=== PATIENT | male | born 1935 | race Caucasian/White ===

== ENCOUNTER 2016-11-17 12:22 | Inpatient (IN) | payer MEDICARE ==
[~2016-11-17] VITALS: Ht 170.2 cm; Wt 74.2 kg
[2016-11-17] VITALS (8 sets, daily range): BP systolic 118–203; BP diastolic 42–104; PULSE 93–130; RESP 17–28; O2SAT 91–95
[~2016-11-17 12:22] MED LIST: ACET1TAB12 PO; AMIO400T4 PO; ASPI-973 PO; ATOR40TA69 PO; FLAX100010 PO; FURO40TA4 PO; HYDR25TA4 PO; LISI-567 PO; MULT-1018 PO; WARF5TAB7 PO
--- NOTE | 2016-11-17 12:28 | ED.REPORT ---
HPI-Dyspnea / Wheezing Date of Service Nov 17, 2016 ED Provider: Dr. Mark Anthony Rodas MD An 81 year old male with a history of atrial fibrillation on Warfarin, MA, CAD, hypertension and PVD presents to the ED with sudden onset dsypnea that began at 1100 this morning. The patient reports that he was completely asymptomatic prior to sudden onset of chills, fever, SOB, productive cough with white sputum, nasal congestion, heart palpitations, and diaphoresis this morning. He was completely asymptomatic yesterday. The patient has been taking his medications directed. No known recent sick contacts. He denies any chest pain. This morning, INR - 2.1 Nursing Notes Stated Complaint: SOB Nursing Notes Reviewed: Yes Allergies: Coded Allergies: No Known Allergies (Unverified Allergy, Unknown, 11/17/16) Scheduled Amiodarone (Amiodarone) 400 Mg Tablet 400 MG PO Evening Aspirin (Aspirin) 81 Mg Tablet 81 MG PO DAILY Atorvastatin Calcium (Atorvastatin Calcium) 40 Mg Tablet 40 MG PO HS Flaxseed (Flaxseed Oil) 1,000 Mg Capsule 1,000 MG PO DAILY Furosemide (Furosemide) 40 Mg Tablet 40 MG PO DAILY Hydrochlorothiazide (Hydrochlorothiazide) 25 Mg Tablet 25 MG PO Evening Lisinopril (Lisinopril) 20 Mg Tablet 20 MG PO AM Multivitamin (Multi Vitamin Daily) 1 Each Tablet 1 EACH PO DAILY Warfarin Sodium (Warfarin Sodium) 5 Mg Tablet 5 MG PO Mon, Thr Warfarin Sodium (Warfarin Sodium) 5 Mg Tablet 2.5 MG PO ,,Sun, Sa, Oakes General Time Seen by MD: 12:27 Chief Complaint Shortness of breath Hx Obtained From: Patient Arrived By: Walk-in Sudden in Onset?: Yes Onset Occurred: Just prior to arrival (1100) Symptom Duration: Since onset Location: : None Associated with: Reports: Cough, Diaphoresis, Nasal congestion Pertinent Negative: Pt denies other symptoms Recent Healthcare: No recent doctor visit, No recent hospitalization Risk Factors CAD Risk Stratification Known CAD Past Medical History Past Medical History MA Alcoholic, 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 Mild to moderate global hypokinesis of the left ventricle. Mitral regurgitation, severe by angiography. Atrial fibrillation, anticoagulated on coumadin Gallbladder: reduced ejection fraction on HIDA scan Hypertension History of remote gastrointestinal bleed, more than 10 years ago. Possible benign prostatic hypertrophy. Anemia. Peripheral vascular disease, femoral artery stenosis by catheterization. Past Surgical History shoulder repair 4 way bypass mitral valve replacement Smoking History Never Smoker Social History Lives with his Works part-time as a deisel diesel mechanic apprentice Alcohol Use: In recovery Drug Use: Denies drug use Other Social History: , Local resident Ambulatory Status Independent Review of Systems Constitutional: Reports: Chills, Fever Ears / Nose / Throat: Reports: Nasal congestion Respiratory: Reports: Prod cough, clear, Shortness of breath Cardiovascular: Reports: Palpitations, Denies: Chest pain Skin: Reports Diaphoresis Complete sys rev & neg: except as marked. Physical Exam Initial Vital Signs Vital Signs (First) Date Time Temp Pulse Resp B/P Pulse Ox O2 Delivery O2 Flow Rate FiO2 11/17/16 12:34 37.0 130 17 203/42 95 Room Air Initial VS: Reviewed Head / Eyes: Atraumatic, Normocephalic, PERRL Extremities: Vascular intact, Neuro intact, No swelling, No tenderness Skin: Warm, Dry, No cyanosis Neurologic: Alert, Oriented, Nonfocal Psychiatric: Mood/affect normal, Behavior normal, Normal thought content General/Constitutional: Awake, Alert, No acute distress GENERAL: Febrile Neck: Atraumatic, Supple, Full range of motion, Non-tender Respiratory / Chest: Atraumatic Diminished Breath Sounds: Positive: Decreased bilateral RESPIRATORY: Tachypneic Cardiovascular: Regular rhythm, Heart sounds NL, Peripheral circulation NL, Pulses = bilaterally Heart Rate / Rhythm: Positive: Tachycardia Abdomen: Atraumatic, Soft Interpretation & Diagnostics Lab Results Interpretation Result Diagram: 11/17/16 1240 11/17/16 1240 Test 11/17/16 12:40 White Blood Count 12.1th/mm3 (3.8-10.1) Red Blood Count 4.58mil/mm3 (4.40-5.80) Hemoglobin 12.7g/dL (13.8-17.2) Hematocrit 39.6% (41.0-50.0) Mean Corpuscular Volume 86.5fL (81-100) Mean Corpuscular Hemoglobin 27.7pg (27.0-35.0) Mean Corpuscular Hemoglobin Concent 32.1% (32.0-37.0) Red Cell Distribution Width 18.0% (12.3-15.4) Platelet Count 214bil/L (150-400) Neutrophils (%) (Auto) 79.9% (40-74) Lymphocytes (%) (Auto) 12.4% (14-46) Monocytes (%) (Auto) 6.8% (4-12) Eosinophils (%) (Auto) 0.7% (0-5) Basophils (%) (Auto) 0% (0-3) Prothrombin Time 18.4sec (8.1-12.5) Prothromb Time International Ratio 1.70ratio Sodium Level 141mEq/L (134-144) Potassium Level 3.7mEq/L (3.5-5.2) Chloride Level 101mEq/L (97-108) Carbon Dioxide Level 22mmol/L (18-29) Blood Urea Nitrogen 21mg/dL (8-27) Creatinine 0.90mg/dL (0.76-1.27) Estimat Glomerular Filtration Rate 86mL/min (>59) Glucose Level 100mg/dL (60-99) Lactic Acid Level 2.6mmol/L (0.4-2.0) Calcium Level 9.7mg/dL (8.5-10.1) Magnesium Level 1.7mg/dL (1.6-2.6) Total Bilirubin 1.0mg/dL (0.0-1.2) Aspartate Amino Transf (AST/SGOT) 48U/L (0-50) Alanine Aminotransferase (ALT/SGPT) 34U/L (0-44) Alkaline Phosphatase 91U/L (25-160) Troponin T 0.010ug/L (0.0-0.011) Pro-B-Type Natriuretic Peptide 2548pg/mL (0-486) Total Protein 7.9g/dL (6.4-8.4) Albumin 4.4g/dL (3.4-5.0) Procalcitonin 0.03ng/mL (0.00-0.08) Hold [place] Top Tube Received (Received) ECG Interpretation ECG Interpretation: Sinus tachycardia Rate 135 bpm Ventricular premature complex Consider left ventricular hypertrophy Compared to previous (05/25/14) - Now tachycardic changed from sinus Time: 12:42 Interpreted by: ED physician X-Ray Chest Interpretation Chest Xray Interpretation: IMPRESSION: Prior cardiac surgery, probable prior CABG. No sign of acute CHF. Note is made of a chronic interstitial prominence within the lung parenchyma not significantly changed considering slight differences in inspiratory volume. A mild or early pneumonia the left lung base would be very difficult to accurately detect superimposed on this pattern. Dictated by: Chace Ventura M.D. on 11/17/2016 at 12:54 Interpretation / Wet Read by: Interpret - Radiologist Re-Eval/Medical Decision Med Decision/Clinical Course Likely a pneumonia or other upper respiratory infection causing a sepsis pattern as well as A. fib with rapid ventricular response. Multiple doses of IV metoprolol and a dose of IV Cardizem were given. Patient is put on Rocephin and azithromycin. Patient will be admitted Re-Evaluation/Progress #1: Time of Eval: 13:07 Re-Evaluation/Progress Note: Patient is rechecked. Coughing is still present. Hypertensive upon re-eval . All questions are addressed at this time. Re-Evaluation/Progress #2: Time of Eval: 13:57 Patient Status: Condition improved Re-Evaluation/Progress Note: All questions are addressed. The patient is agreeable to his disposition at this time. Consultation : Referral / Consult Name: Kristen Griffiths DO Consulted With: Hospitalist Call Returned at: 14:32 [employer] Car[employer] Operator: Will see patient, Agrees with eval, Agrees with plan, Accepts admit Note: Discussed patient condition. Accepts admission. Counseled Regarding: Diagnosis, Lab results, Need for admission Discharge & Departure Impression: Primary Impression: Sepsis Sepsis type: sepsis due to unspecified organism Qualified Code: A41.9 - Sepsis, unspecified organism Additional Impression: Upper respiratory infection URI type: unspecified URI Qualified Code: J06.9 - Acute upper respiratory infection, unspecified Disposition: ADMITTED TO HOSPITAL Discharge Condition All VS Reviewed: Yes Condition: Improved Referrals: Hernán Chávez MD (PCP) Crit Care Except Billable Proc Time Spent: 30-74 minutes (35 min) Services Performed: Patient management by me, Time spent at bedside, Reviewing test results, Reviewing imaging, Discussing patient care, Documentation in record, Time with fam/surrogate Critical Care Notes: See MDM Scribe Attestation Portions of this note were transcribed by Mariana Baca. I, Dr. Airam Rodas, personally performed the history, physical exam and medical decision-making; I reviewed and confirmed the accuracy of the information in the transcribed note. Signed by: Mariana Baca, 11/17/16. copies to: Hernán Chávez MD, Timothy S DO Nov 17, 2016 12:28 MARIANA BACA Nov 17, 2016 12:37
[2016-11-17] MEDS ORDERED: 0.9% Sodium Chloride 1,000 ML IV ONE (12:35)
[2016-11-17] MEDS ORDERED: Nitroglycerin 2% 1 Gm Ointment TOPICAL SCH (12:50)
[2016-11-17] MEDS: MeTOProlol 1 mg/mL 5 mL Inj IVPUSH SCH ×3 (12:54→13:05)
--- NOTE | 2016-11-17 12:57 | DRSVH ---
PROCEDURE: X-RAY CHEST ONE VIEW, PORTABLE ([id number]) INDICATIONS: chest pain TECHNIQUE: One view of the chest was acquired. COMPARISON: [facility], , CHEST 1VW (PORTABLE), 01/14/2014, 10:47. [facility], CR, CHEST 1VW (PORTABLE), 03/06/2014, 9:49. FINDINGS: Surgical changes and devices: Stable time, left shoulder arthroplasty, heart valve replacement, mike otomy wires. Lungs and pleura: No pleural effusions or pneumothorax. Lungs are abnormal with a chronic interstit ial prominence, perhaps reflecting prior smoking history, and no definite focal pneumonia is found.. Mediastinum: Mediastinal contours appear normal. Heart size is normal. Bones and chest wall: No suspicious bony lesions. Overlying soft tissues appear unremarkable. IMPRESSION: Prior cardiac surgery, probable prior CABG. No sign of acute CHF. Note is made of a chr onic interstitial prominence within the lung parenchyma not significantly changed considering slight differences in inspiratory volume. A mild or early pneumonia the left lung base would be very diffic ult to accurately detect superimposed on this pattern. Dictated by: Cahce Ventura M.D. on 11/17/2016 at 12:54 Approved by: Chace Ventura M.D. on 11/17/2016 at 12:56
[2016-11-17 13:04] LABS: BASOPHILS % (AUTO) 0 % (0-3); EOSINOPHILS % (AUTO) 0.7 % (0-5); MONOCYTES % (AUTO) 6.8 % (4-12); Mean Corpuscular Hemoglobin 27.7 pg (27.0-35.0); Mean Corpuscular Volume 86.5 fL (81-100); NEUTROPHILS % (AUTO) 79.9 % (40-74); Platelet Count 214 bil/L (150-400)
[2016-11-17 13:10] LABS: INR 1.7 ratio
[2016-11-17 13:18] LABS: TROPONIN T 0.01 ug/L (0.0-0.011)
[2016-11-17 13:29] LABS: Magnesium 1.7 mg/dL (1.6-2.6)
[2016-11-17] MEDS ORDERED: Diltiazem 5 mg/mL 5 mL Inj IVPUSH ONE (13:30)
[2016-11-17] MEDS ORDERED: cefTRIAXone Inj 2,000 MG in Dextrose 5% Minibag Plus 50 ML IV ONE (13:55)
[2016-11-17] MEDS ORDERED: Azithromycin Inj 500 MG in Dextrose 5% w/Vial Mate 250 ML IV ONE (13:55)
[2016-11-17] MEDS: 0.9% Sodium Chloride 1,000 ML IV SCH ×3 (13:55→20:15)
[2016-11-17] MEDS ORDERED: WARF5TAB7 PO (14:48)
[2016-11-17] MEDS ORDERED: Ondansetron 2 mg/mL 2 mL Inj IVPUSH PRN ×2 (15:00→17:50)
[2016-11-17] MEDS ORDERED: Alum-Mag Hydrox-Simeth 30 mL Suspension PO PRN ×2 (15:00→17:50)
--- NOTE | 2016-11-17 17:21 | NUR ---
Admit to [facility] Patient report called by ED RN. Patient arrived via gurney to room 3001 and was able to transfer to scale and bed independently. Patient had NS @ 100mL/hr and antibiotics running. Patient placed on telemetry. Patient oriented to staff, room, call light, and visiting hours. Bed locked and call light within reach.
--- NOTE | 2016-11-17 17:44 | PCM.HPMED ---
Subjective Date of Service Nov 17, 2016 Primary Provider: Admitting Physician: Kristen Griffiths DO Primary Care Physician: Hernán Chávez MD Attending Physician: Kristen Griffiths DO Allergies Coded Allergies: No Known Allergies (Unverified Allergy, Unknown, 11/17/16) PMH Social History Hx Alcohol Use: Yes ("It'll be 30 years next month") Hx Substance Use: No Smoking Status: Never Smoker Exam Vital Signs Vital Sign - Last Date Time Temp Pulse Resp B/P Pulse Ox O2 Delivery O2 Flow Rate FiO2 11/17/16 17:15 101 11/17/16 17:04 Supplement Oxygen 11/17/16 15:43 36.8 145/91 93 1.50 11/17/16 15:30 26 Lab and Diagnostics Result Diagram: 11/17/16 1240 11/17/16 1240 Assessment & Plan CC: Just not feeling well HPI: Patient is an 81-year-old male with a history of CABG, CAD, hyperlipidemia , hypertension, left hearing loss status post left total shoulder replacement, and paroxysmal atrial fib who presents with the complaint of fevers chills and cough. The patient stated that this happened all of a sudden starting today. The patient states that yesterday he is feeling well but this morning he woke up not feeling right and new that he needed to come in. On admission the patient was noted to have a temperature of 38.8, white blood cell count of 12, tachycardic at 109-116. The patient currently denies any shortness of breath and the patient states that he does not feel palpitations however he states that he does not always feel when he is in A. fib. The patient was admitted with upper respiratory infection meeting sirs criteria. Home medications: Amiodarone 400 mg by mouth daily at bedtime Aspirin 81 mg by mouth daily Atorvastatin 40 mg by mouth daily at bedtime Flaxseed thousand milligrams daily Lasix 40 mg daily HCTZ 25 mg by mouth daily at bedtime Lisinopril 20 mg by mouth every morning Multivitamin Warfarin 5 mg Sunday and Warfarin 2.5 mg by mouth Sunday, Sunday, Sunday, Sunday, Sunday Allergies: No known drug allergies PMHx: CAD Left-sided hearing loss status post left total shoulder Paroxysmal atrial fibrillation Hyperlipidemia Hypertension SHx: Bypass surgery Left total shoulder FHx: Mother in her 90s secondary to old age Mother age 41 secondary to stroke SocHx: Occupation: Retired Tobacco history: Patient denies Alcohol use: Quit 30 years ago previous alcoholic Drug use: Patient denies ROS: A complete review of systems was performed or attempted to be performed. Please see HPI for pertinent positives, all other systems are negatives. Physical Exam: GEN: Patient was awake, alert, responding appropriately to questions HEENT: Pupils equal round and reactive to light, extraocular eye muscles intact , Neck soft supple, trachea midline, nomocephalic/atraumatic CV: +S1/S2, regular rate and rhythm, significant for over 6 systolic murmur auscultated Respiratory: Coarse breath sounds, no wheezes rales or rhonchi GI: +bowel sounds x4, soft, compressible, nontender to palpation EXT: no clubbing, cyanosis, edema Neuro: Cranial nerves II-XII grossly intact Psych: mood and affect were appropriate Assessment and Plan Patient is an 81-year-old male with a history of CABG, CAD, hyperlipidemia, hypertension, left hearing loss status post left totalshoulder replacement, and paroxysmal atrial fib who presents with upper respiratory infection sirs criteria Upper respiratory infection meeting sirs criteria probable pneumonia, present on admission, active Elevated white blood cell count 12.1, elevated heart rate 109-116, elevated respiratory rate at 28 - Chest x-ray reads probable pneumonia -Elevated lactic acid at 2.6 - Procalcitonin is within normal limits at 0.03 -Blood cultures pending -PCR results pending -Sputum culture pending -Continue ceftriaxone and azithromycin IV -Continue oxygen as needed maintaining sats 92% or above -Tylenol when necessary for fevers -We will hold IV fluids at this time as the patient seems to have adequate hydration and no signs of acute kidney injury, sodium is within normal limits, and patient does have a history of CHF -Follow up labs in the morning Paroxysmal atrial fibrillation, present on admission, active -Continue amiodarone -Continue telemetry -Continue aspirin -Continue warfarin -Continue to monitor Hypertension, present on admission, active -Continue lisinopril 20 mg daily -Continue HCTZ 25 mg at bedtime Chronic systolic CHF, present on admission, active -Continue daily Lasix -ProBNP is currently 2548 -At this time no hydration is being given as the patient seems to be adequately hydrated - Continue to monitor and give gentle hydration as necessary Hyperlipidemia, present on admission, stable -Follow up labs -Continue statin DVT prophylaxis: Continue warfarin Diet: Heart healthy Code Status: Full code Disposition: Due to the nature of the patient's current diagnosis anticipated stay is greater than 2 midnight VTE Mechanical Devices: Venous Foot Pump Time spent Greater than 45 minutes Kristen Griffiths DO Nov 17, 2016 17:44
[2016-11-17] MEDS ORDERED: Polyethylene Glycol (PEG) 17 Gm Powder PO PRN (17:50)
--- NOTE | 2016-11-17 18:02 | PCM.ADCARE ---
Advance Care Planning Note Plan: Date: 11/17/2016 Diagnosis: Pneumonia Paroxysmal A. fib Hypertension Hyperlipidemia Purpose of encounter: Goals of care Parties in attendance: The patient, Dr. Griffiths, nurse (Ac[place]) Decisional capacity: Good Plan: The patient is aware of the current diagnosis and would like to continue to be full code. The patient understands that this means for chest compressions , intubation, pressors, and all measures involved with CPR. CODE STATUS: Full code Time spent with advanced care planning: Greater than 16 minutes Kristen Griffiths DO Nov 17, 2016 18:02
--- NOTE | 2016-11-17 18:20 | PCM.PHAPRO ---
Progress Date of Service: Nov 17, 2016 Warfarin Management per Pharmacy Indication: Stroke prophylaxis as patient has atrial fibrillation ([id number]- Vasc = 5) Home Dose: Warfarin 5 mg Mon/Th and 2.5 mg all other days Goal INR: 2-3 Labs: Hgb/Hct: 12.7/39.6 Plt: 214 INR: 1.70 Drug Interactions: Rocephin/Azithromycin - mild interaction Recommendation: INR is subtherapeutic, give 5 mg tonight INR ordered daily x 7 days. Pharmacy to continue to monitor and adjust daily as needed. Thank You, Mary Logan, Pharm D. Mary Logan Nov 17, 2016 18:20
--- NOTE | 2016-11-17 19:06 | NUR ---
Lump Patient was noted to have large lump on left side of bladder area. Unknown to nurse if previous condition. Nurse bladder scanned patient with reading of 215cc. notified. Addendum: 11/18/16 at 0855 by KARRI DYSON RN DISREGARD NOTE WRONG PATIENT
[2016-11-18] VITALS (9 sets, daily range): BP systolic 118–145; BP diastolic 60–78; PULSE 65–111; O2SAT 96–98
[2016-11-18 03:06] LABS: APPEARANCE,URINE CLEAR (CLEAR,HAZY); COLOR,URINE YELLOW (YELLOW); OCCULT BLOOD,URINE MODERATE (NEGATIVE); PH,URINE 5.5 (5.0-8.0); UROBILINOGEN,URINE NORMAL (NORMAL)
[2016-11-18 05:27] LABS: BASOPHILS % (AUTO) 0.1 % (0-3); EOSINOPHILS % (AUTO) 0.2 % (0-5); MONOCYTES % (AUTO) 7.7 % (4-12); Mean Corpuscular Hemoglobin 27.6 pg (27.0-35.0); Mean Corpuscular Volume 85.7 fL (81-100); NEUTROPHILS % (AUTO) 81.9 % (40-74); Platelet Count 157 bil/L (150-400)
[2016-11-18 05:57] LABS: INR 2.02 ratio
[2016-11-18] MEDS: 0.9% Sodium Chloride 1,000 ML IV SCH (07:00)
--- NOTE | 2016-11-18 07:34 | PCM.PNMED ---
Subjective Date of Service Nov 18, 2016 Subjective Pt reports improved SOB. Exam Vital Signs Vital Sign - Last Date Time Temp Pulse Resp B/P Pulse Ox O2 Delivery O2 Flow Rate FiO2 11/18/16 06:12 71 11/18/16 05:10 36.6 118/78 Nasal Cannula 1.50 11/18/16 00:15 96 11/17/16 15:30 26 Intake and Output 11/17/16 11/17/16 11/18/16 Cumulative From/Thru 15:00 23:00 07:00 11/17/16 12:34 - 11/18/16 06:57 Intake Total 500 ml 602 ml 1648 ml 2750 ml Balance 500 ml 602 ml 1648 ml 2750 ml Intake Oral 0 ml 600 ml 600 ml IV Total 500 ml 602 ml 1048 ml 2150 ml # Voids 1 4 5 # Bowel Movements 0 0 0 Exam GEN: Patient was awake, alert, responding appropriately to questions HEENT: Pupils equal round and reactive to light, extraocular eye muscles intact , Neck soft supple, trachea midline, nomocephalic/atraumatic CV: +S1/S2, regular rate and rhythm, significant for over 6 systolic murmur auscultated Respiratory: Coarse breath sounds, no wheezes rales or rhonchi GI: +bowel sounds x4, soft, compressible, nontender to palpation EXT: no clubbing, cyanosis, edema Neuro: Cranial nerves II-XII grossly intact Psych: mood and affect were appropriate IVs and Medications Medications Reviewed: Medications were reviewed in detail Lab and Diagnostics Result Diagram: 11/18/1651511/18/16515 Assessment & Plan Patient is an 81-year-old male with a history of CABG, CAD, hyperlipidemia, hypertension, left hearing loss status post left totalshoulder replacement, and paroxysmal atrial fib who presents with upper respiratory infection sirs criteria Upper respiratory infection meeting sirs criteria probable pneumonia, present on admission, active Elevated white blood cell count 12.1, elevated heart rate 109-116, elevated respiratory rate at 28 - Chest x-ray- chronic interstitial prominence within the lung parenchyma not significantly changed considering slight differences in inspiratory volume. A mild or early pneumonia the left lung base would be very difficult to accurately detect superimposed on this pattern. -Elevated lactic acid at 2.6, resolved. - Procalcitonin elevated 1.14 on 11/18. -Blood cultures pending, PCR results pending, Sputum culture pending -Continue ceftriaxone and azithromycin IV, started on 11/17. - d/c IVF. Paroxysmal atrial fibrillation, present on admission, active -Continue amiodarone -Continue aspirin, warfarin --Continue telemetry - INR Tx at 2.02. Hypertension, present on admission, active -Continue lisinopril 20 mg daily -Continue HCTZ 25 mg at bedtime Chronic systolic CHF, present on admission, active -ProBNP is currently 2548, inc to 5218. Likely due to receiving more IVF. Pt has no other evidence of volume overload. Denies SOB. Sat well on RA. - IVF overnight, held in AM. -Continue daily Lasix, consider extra dose if needed. Hyperlipidemia, present on admission, stable -Continue statin DVT prophylaxis: Continue warfarin Diet: Heart healthy Code Status: Full code Disposition: Due to the nature of the patient's current diagnosis anticipated stay is greater than 2 midnight Pain Evaluation: Adequate Pain Control VTE Prophylaxis: Theraputic Anticoag with Warfarin VTE Mechanical Devices: Venous Foot Pump Resuscitation Status: CPR: Attempt Resuscitation Jose Guadalupe North MD Nov 18, 2016 07:34
--- NOTE | 2016-11-18 07:48 | PCM.PHAPRO ---
Progress Date of Service: Nov 18, 2016 Warfarin dosing Date Nov 18-Nov INR 1.7 2.02 INR change 0.32 Warf Dose 5 MG 2.5 MG Hernán Smith Nov 18, 2016 07:48
[2016-11-18] MEDS: cefTRIAXone Inj 2,000 MG in Dextrose 5% Minibag Plus 50 ML IV SCH (08:27)
[2016-11-18] MEDS ORDERED: FLAXSEED 1000 MG PO SCH (08:30)
[2016-11-18 09:01] LABS: Magnesium 1.6 mg/dL (1.6-2.6)
[2016-11-18] MEDS: Azithromycin Inj 500 MG in Dextrose 5% w/Vial Mate 250 ML IV SCH (09:11)
[2016-11-18] MEDS ORDERED: METO25TA6 PO (11:19)
--- NOTE | 2016-11-18 11:51 | NUR ---
Oxygen Patient was on 1.5L supplemental oxygen this morning with saturations at 96%. Nurse removed supplemental oxygen and patient had saturations at 96% on RA.
--- NOTE | 2016-11-18 12:26 | NUR ---
Evaluation completed/discont PT; up ad shobha Please go to "Notes" then click on "Assessments and Notes" (bottom left corner of screen). Then select appropriate discipline tab on top of screen. no further PT; up ad shobha
[2016-11-19 01:25] VITALS: BP 130/68; PULSE 74; O2SAT 94
[2016-11-19 05:11] VITALS: BP 143/83; PULSE 82; O2SAT 95
[2016-11-19 06:05] LABS: INR 2.37 ratio
[2016-11-19 06:34] VITALS: PULSE 80
--- NOTE | 2016-11-19 06:37 | NUR ---
Nonsustaining A-fib RVR Tele: a-fib, HR 80s-90s, HR briefly to 128 for 15s around 0142 while pt sleeping, asymptomatic. Otherwise, no issue, pt denies any pain,chest pressure, palpitation, SOB,N/V/fever,chills,discomfort with urination. BP stable, afebrile.
--- NOTE | 2016-11-19 07:23 | PCM.PHAPRO ---
Progress Warfarin dosing Warfarin Management by Pharmacy: -Indication: afib -Home Dose: 5mg on MoTh and 2.5mg all other days -Inr Goal: 2-3 -[id number] Score: 5 -Drug Interactions: ceftriaxone, azithromycin, amiodarone -Coagulation Trends: Nov 18-Nov 19-Nov 1.7 2.02 2.37 0.32 0.35 5 MG 2.5 MG 2.5MG -Plan: inr is therapeutic, 2.37. will continue with home dose of warfarin 2.5mg and monitor [facility] Nov 19, 2016 07:23
[2016-11-19 08:28] LABS: BASOPHILS % (AUTO) 0.1 % (0-3); EOSINOPHILS % (AUTO) 1.3 % (0-5); MONOCYTES % (AUTO) 9.6 % (4-12); Mean Corpuscular Hemoglobin 28.2 pg (27.0-35.0); Mean Corpuscular Volume 85.8 fL (81-100); NEUTROPHILS % (AUTO) 72.5 % (40-74); Platelet Count 155 bil/L (150-400)
--- NOTE | 2016-11-19 08:28 | DRSVH ---
PROCEDURE: X-RAY CHEST ONE VIEW, PORTABLE ([id number]) INDICATIONS: Sob TECHNIQUE: One view of the chest was acquired. COMPARISON: [facility], CR, XR CHEST 1VW (PORTABLE), 11/17/2016, 12:42. FINDINGS: Surgical changes and devices: Left shoulder arthroplasty. Median sternotomy. Lungs and pleura: No pleural effusions or pneumothorax. Mild left basilar airspace opacity is unchan ged. Mediastinum: Mediastinal contours appear normal. Heart size is normal. Bones and chest wall: No suspicious bony lesions. Overlying soft tissues appear unremarkable. IMPRESSION: No change in left lower lobe pneumonia. Dictated by: Lydia Hoffman M.D. on 11/19/2016 at 8:27 Approved by: Lydia Hoffman M.D. on 11/19/2016 at 8:27
[2016-11-19] MEDS: cefTRIAXone Inj 2,000 MG in Dextrose 5% Minibag Plus 50 ML IV SCH (08:39)
[2016-11-19 08:49] LABS: Magnesium 1.7 mg/dL (1.6-2.6)
[2016-11-19] MEDS: Azithromycin Inj 500 MG in Dextrose 5% w/Vial Mate 250 ML IV SCH (09:21)
[2016-11-19 09:28] VITALS: BP 132/71; PULSE 69; RESP 16; O2SAT 96
--- NOTE | 2016-11-19 10:23 | NUR ---
Social Work: Initial Assessment / Discharge Data: See initial assessment. Patient is an 81 year old male who was admitted on 11/17/16 for URI, sepsis, AFIB with RVR per H&P. Patient's insurance is [employer] [place] Medicare and his PCP is Hernán Chávez MD. EMR reviewed. SW met with patient to discuss discharge planning. SW role explained. Patient informed SW that he resides at home in [place] with his . Patient considers his to be his main source of support. Patient states that his is his DPOA and that AD have been completed. Patient confirms that he is I at baseline. Patient states that he has a walker at home that he has used in the past but no longer needs it. Patient confirms that he drives via POV. Patient denies having a hx of home health services or SNF. 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 Patient states that upon discharge, his will transport him home. SW provided patient with a discharge planning checklist booklet and encouraged to call with any questions or concerns. Phone number provided. Patient was discussed in morning rounds. Patient has been deemed medically stable for discharge today per MD. No concerns were noted by staff or MD. Transportation will be provided by his . Patient has no additional needs at this time. Assessment: Patient is from home with spouse. Plan: Patient will discharge home today. Transportation will be provided by his . Patient has no additional needs at this time. CARMEN Hayden Addendum: 11/19/16 at 1030 by ZIGGY GOOD Amended: Links added.
[2016-11-19 10:26] VITALS: PULSE 94
--- NOTE | 2016-11-19 11:09 | PCM.DC.MED ---
Discharge Summary Date of Service Nov 19, 2016 Dates of Hospitalization Date of Hospital Admission Nov 17, 2016 at 14:48 Date of Discharge: Nov 19, 2016 Providers: Admitting Physician: Kristen Griffiths DO Primary Care Physician: Hernán Chávez MD Attending Physician: Miriam Rodriguez MD Diagnosis at Time of Discharge Diagnosis at Time of Discharge LLL Pneumonia- present on admission, active. Paroxysmal atrial fibrillation, present on admission, active Hypertension, present on admission, active Chronic systolic CHF, present on admission, active Hyperlipidemia, present on admission, stable Procedures XRay, CTs & MRIs Date of Service: 11/19/16 0804 PROCEDURE: X-RAY CHEST ONE VIEW, PORTABLE ([id number]) INDICATIONS: Sob TECHNIQUE: One view of the chest was acquired. COMPARISON: [facility], , XR CHEST 1VW (PORTABLE), 11/17/2016, 12: 42. FINDINGS: Surgical changes and devices: Left shoulder arthroplasty. Median sternotomy. Lungs and pleura: No pleural effusions or pneumothorax. Mild left basilar airspace opacity is unchanged. Mediastinum: Mediastinal contours appear normal. Heart size is normal. Bones and chest wall: No suspicious bony lesions. Overlying soft tissues appear unremarkable. IMPRESSION: No change in left lower lobe pneumonia. Date of Service: 11/17/16 PROCEDURE: X-RAY CHEST ONE VIEW, PORTABLE ([id number]) INDICATIONS: chest pain TECHNIQUE: One view of the chest was acquired. COMPARISON: [facility], , CHEST 1VW (PORTABLE), 01/14/2014, 10: 47. [facility], , CHEST 1VW (PORTABLE), 03/06/2014, 9:49. FINDINGS: Surgical changes and devices: Stable time, left shoulder arthroplasty, heart valve replacement, sternotomy wires. Lungs and pleura: No pleural effusions or pneumothorax. Lungs are abnormal with a chronic interstitial prominence, perhaps reflecting prior smoking history , and no definite focal pneumonia is found.. Mediastinum: Mediastinal contours appear normal. Heart size is normal. Bones and chest wall: No suspicious bony lesions. Overlying soft tissues appear unremarkable. IMPRESSION: Prior cardiac surgery, probable prior CABG. No sign of acute CHF. Note is made of a chronic interstitial prominence within the lung parenchyma not significantly changed considering slight differences in inspiratory volume. A mild or early pneumonia the left lung base would be very difficult to accurately detect superimposed on this pattern. Brief History Per HPI by Dr. Griffiths on 11/17/16 Patient is an 81-year-old male with a history of CABG, CAD, hyperlipidemia, hypertension, left hearing loss status post left total shoulder replacement, and paroxysmal atrial fib who presents with the complaint of fevers chills and cough. The patient stated that this happened all of a sudden starting today. The patient states that yesterday he is feeling well but this morning he woke up not feeling right and new that he needed to come in. On admission the patient was noted to have a temperature of 38.8, white blood cell count of 12, tachycardic at 109-116. The patient currently denies any shortness of breath and the patient states that he does not feel palpitations however he states that he does not always feel when he is in A. fib. The patient was admitted with upper respiratory infection meeting sirs criteria. Hospital Course Patient is an 81-year-old male with a history of CABG, CAD, hyperlipidemia, hypertension, left hearing loss status post left totalshoulder replacement, and paroxysmal atrial fib who presents with upper respiratory infection sirs criteria LLL Pneumonia- present on admission, active. Likely bacterial CAP. Elevated white blood cell count 12.1, elevated heart rate 109-116, elevated respiratory rate at 28 - Chest x-ray- chronic interstitial prominence within the lung parenchyma not significantly changed considering slight differences in inspiratory volume. A mild or early pneumonia the left lung base would be very difficult to accurately detect superimposed on this pattern. - Elevated lactic acid at 2.6, resolved. - Procalcitonin elevated 1.14 on 11/18. - Blood cultures , PCR results pending, Sputum culture - all negative so far. -Continue ceftriaxone and azithromycin IV, started on 11/17. Will discharge on Amoxicillin and Azithromycin for 7 days total to end 11/23. Paroxysmal atrial fibrillation, present on admission, active -Continue amiodarone -Continue aspirin, warfarin --Continue telemetry - INR Tx at 2.02. Hypertension, present on admission, active -Continue lisinopril 20 mg daily -Continue HCTZ 25 mg at bedtime Chronic systolic CHF, present on admission, active -ProBNP is currently 2548, inc to 5218. Likely due to receiving more IVF. Pt has no other evidence of volume overload. Denies SOB. Sat well on RA. - IVF overnight, held in AM. -Continue daily Lasix, consider extra dose if needed. Hyperlipidemia, present on admission, stable -Continue statin DVT prophylaxis: Continue warfarin Diet: Heart healthy Code Status: Full code Dispo- Home Take antibiotics Amoxicillin and Azithromycin for 7 days total to end 11/23. Start next dose Monday 11/20 in morning. Continue your lasix daily, take an extra pill if notice shortness of breath or increased weight. Check weight daily. See your primary doctor in 1 week. Would recommend repeat Chest X-Ray in 1 month to monitor improvement of pneumonia in the Left Lower Lung. Exam Vital Signs (Last) Date Time Temp Pulse Resp B/P Pulse Ox O2 Delivery O2 Flow Rate FiO2 11/19/16 10:26 94 11/19/16 09:28 36.6 16 132/71 96 Room Air 11/18/16 09:18 1.50 Test 11/17/16 12:40 11/17/16 15:00 11/18/16 02:07 11/18/16 05:16 Troponin T 0.010ug/L (0.0-0.011) Hold [place] Top Tube Received (Received) Hold Urine Received (Received) Urine Color Yellow (YELLOW) Urine Appearance Clear (CLEAR,HAZY) Urine pH 5.5 (5.0-8.0) Urine Specific [place] 1.025 (1.003-1.035) Urine Protein Negativemg/dL (NEG,TRACE) Urine Glucose (UA) Negativemg/dL (NEGATIVE) Urine Ketones 15mg/dL (NEGATIVE) Urine Occult Blood Moderate (NEGATIVE) Urine Nitrite Negative (NEGATIVE) Urine Bilirubin Negative (NEGATIVE) Urine Urobilinogen Normalmg/dL (NORMAL) Urine Leukocyte Esterase Negative (NEGATIVE) Urine RBC 3-10/hpf (0-2) Urine WBC 0-5/hpf (0-5) Urine Epithelial Cells Few/hpf (NONE-MOD) Urine Crystals None seen (NONE SEEN) Urine Bacteria Few/hpf (NONE-FEW) Urine Hyaline Casts None/lpf (NONE) Urine Granular Casts None seen (NONE SEEN) Urine Waxy Casts None seen (NONE SEEN) Urine Red Blood Cell Casts None seen (NONE SEEN) Urine White Blood Cell Casts None seen (NONE SEEN) Urine Mucus None seen (None Seen) Urine Trichomonas None seen (NONE SEEN) Urine Yeast None (NONE SEEN) Urinalysis Comment None Urine Culture Reflexed Not indicated Lactic Acid Level 1.1mmol/L (0.4-2.0) Triglycerides Level 40mg/dL (0-149) Cholesterol Level 94mg/dL (100-199) LDL Cholesterol, Calculated 41.000mg/dL (0-99) VLDL Cholesterol 8.000mg/dL HDL Cholesterol 45mg/dL (>39) Cholesterol/HDL Ratio 2.09 (0.0-4.4) Procalcitonin 1.14ng/mL (0.00-0.08) Test 11/19/16 05:20 White Blood Count 10.2th/mm3 (3.8-10.1) Red Blood Count 3.93mil/mm3 (4.40-5.80) Hemoglobin 11.1g/dL (13.8-17.2) Hematocrit 33.7% (41.0-50.0) Mean Corpuscular Volume 85.8fL (81-100) Mean Corpuscular Hemoglobin 28.2pg (27.0-35.0) Mean Corpuscular Hemoglobin Concent 32.9% (32.0-37.0) Red Cell Distribution Width 18.1% (12.3-15.4) Platelet Count 155bil/L (150-400) Neutrophils (%) (Auto) 72.5% (40-74) Lymphocytes (%) (Auto) 16.4% (14-46) Monocytes (%) (Auto) 9.6% (4-12) Eosinophils (%) (Auto) 1.3% (0-5) Basophils (%) (Auto) 0.1% (0-3) Prothrombin Time 25.8sec (8.1-12.5) Prothromb Time International Ratio 2.37ratio Sodium Level 139mEq/L (134-144) Potassium Level 3.3mEq/L (3.5-5.2) Chloride Level 102mEq/L (97-108) Carbon Dioxide Level 22mmol/L (18-29) Blood Urea Nitrogen 18mg/dL (8-27) Creatinine 1.00mg/dL (0.76-1.27) Estimat Glomerular Filtration Rate 76mL/min (>59) Glucose Level 91mg/dL (60-99) Calcium Level 8.8mg/dL (8.5-10.1) Magnesium Level 1.7mg/dL (1.6-2.6) Total Bilirubin 1.1mg/dL (0.0-1.2) Aspartate Amino Transf (AST/SGOT) 26U/L (0-50) Alanine Aminotransferase (ALT/SGPT) 24U/L (0-44) Alkaline Phosphatase 68U/L (25-160) Pro-B-Type Natriuretic Peptide 4307pg/mL (0-486) Total Protein 6.1g/dL (6.4-8.4) Albumin 3.4g/dL (3.4-5.0) Microbiology Results Microbiology 11/17/16 Blood Culture - Preliminary, Resulted NO GROWTH AFTER 24 HOURS 11/18/16 Sputum Quality Screen - Final, Resulted 11/18/16 Sputum Culture - Preliminary, Resulted MODERATE NORMAL BEVERLEY PRESENT Discharge Medications Discharge Medications Amiodarone (Amiodarone) 400 Mg Tablet 400 MG PO Evening (Reported) Amoxicillin (Amoxicillin) 875 Mg Tablet 875 MG PO BID Prescribed by: MIRIAM RODRIGUEZ MD Aspirin (Aspirin) 81 Mg Tablet 81 MG PO DAILY (Reported) Atorvastatin Calcium (Atorvastatin Calcium) 40 Mg Tablet 40 MG PO HS (Reported) Azithromycin (Zithromax) 250 Mg Tablet 250 MG PO DAILY Prescribed by: MIRIAM RODRIGUEZ MD Flaxseed (Flaxseed Oil) 1,000 Mg Capsule 1,000 MG PO DAILY (Reported) Furosemide (Furosemide) 40 Mg Tablet 40 MG PO DAILY (Reported) Hydrochlorothiazide (Hydrochlorothiazide) 25 Mg Tablet 25 MG PO Evening ( Reported) Lisinopril (Lisinopril) 20 Mg Tablet 20 MG PO AM (Reported) Metoprolol Tartrate (Metoprolol Tartrate) 25 Mg Tablet 25 MG PO BID (Reported) Multivitamin (Multi Vitamin Daily) 1 Each Tablet 1 EACH PO DAILY (Reported) Warfarin Sodium (Warfarin Sodium) 5 Mg Tablet 5 MG PO Sun, (Reported) Warfarin Sodium (Warfarin Sodium) 5 Mg Tablet 2.5 MG PO ,,Sun, Sa, [place] ( Reported) Additional med instructions Take antibiotics Amoxicillin for 7 days total to end 11/23 and Azithromycin for 5 days total to end . Start next dose Monday 11/20 in morning for both. Continue your lasix daily, take an extra pill if notice shortness of breath or increased weight. Check weight daily. Followup Plan Disposition: Home Follow-up plan See your primary doctor in 1 week. Would recommend repeat Chest X-Ray in 1 month to monitor improvement of pneumonia in the Left Lower Lung. Discharge Diet: Heart Healthy Discharge Activity: Limited until seen by PCP Follow-up Provider: Hernán Portillo MD Follow-up with PCP in: 1 week Time spent Greater than 30 minutes was spent in preparation of discharge with greater than 50% of that time dedicated to patient counseling and coordination of care. copies to: Hernán Chávez MD, Navdeep MD Nov 19, 2016 11:09
[2016-11-19] MEDS ORDERED: ZIT250 PO (11:12)
[2016-11-19] MEDS ORDERED: AMOX875T2 PO (11:12)
--- NOTE | 2016-11-19 11:18 | PCM.DIMED ---
Discharge Instructions Date of Service Nov 19, 2016 Dates of Hospitalization Nov 17, 2016 at 14:48 Discharge Diagnosis Discharge Diagnosis LLL Pneumonia- present on admission, active. Paroxysmal atrial fibrillation, present on admission, active Hypertension, present on admission, active Chronic systolic CHF, present on admission, active Hyperlipidemia, present on admission, stable Medication Instructions Additional med instructions Take antibiotics Amoxicillin for 7 days total to end 11/23 and Azithromycin for 5 days total to end . Start next dose Monday 11/20 in morning for both. Diet Discharge Diet: Heart Healthy Activity Discharge Activity: Limited until seen by PCP Patient Instructions Patient Instructions Continue your lasix daily, take an extra pill if notice shortness of breath or increased weight. Check weight daily. Follow-up plan See your primary doctor in 1 week. Would recommend repeat Chest X-Ray in 1 month to monitor improvement of pneumonia in the Left Lower Lung. Follow-up Provider: Hernán Portillo MD Follow-up with PCP in: 1 week Jose Guadalupe North MD Nov 19, 2016 11:18
--- NOTE | 2016-11-19 12:19 | NUR ---
Discharge Patient given discharge orders. Patient given medication list with written times when next dose is due. Hard copies of prescriptions given to patient. Patient given informational packets. Patient IV removed fully intact and asymptomatic. called for transportation.
== END 2016-11-19 12:20 | disposition home or self-care (01) | DRG 194 ==
LOC: SED 12:22 → MPC 14:48
PROVIDERS: ADMIT Neuromusculoskeletal Medicine & OMM; ATTEND Internal Medicine
DX: J18.9 Pneumonia, unspecified organism (principal); I50.22 Chronic systolic (congestive) heart failure; I25.10 Atherosclerotic heart disease of native coronary artery without angina pectoris; I34.0 Nonrheumatic mitral (valve) insufficiency; I48.0 Paroxysmal atrial fibrillation; I11.0 Hypertensive heart disease with heart failure; E78.5 Hyperlipidemia, unspecified; Z95.1 Presence of aortocoronary bypass graft; Z79.82 Long term (current) use of aspirin; Z79.899 Other long term (current) drug therapy; Z79.01 Long term (current) use of anticoagulants; Z96.612 Presence of left artificial shoulder joint